=== PATIENT | male | born 1990 | race Caucasian/White ===

== ENCOUNTER 2016-06-09 09:04 | Emergency (ER) | payer BC ==
[2016-06-09] MEDS ORDERED: NS 0.9% 1000 ML* 2,000 ML IV ONE (09:43)
[2016-06-09 10:03] LABS: Hematocrit 46 % (42-52); Hemoglobin 16.1 g/dl (14.0-18.0); Mean Corpuscular HGB Conc 35 g/dl (31-36); Mean Corpuscular Hemoglobin 29 pg (27-31); Mean Corpuscular Volume 83 fL (80-94); Mean Platelet Volume 9 um3 (7.4-10.4); Red Blood Count 5.57 10^6/ul (4.0-5.4); Red Cell Distribution Width 13 % (10.5-15); White Blood Count 14.8 10^3/ul (3.5-10.8)
[2016-06-09 10:10] LABS: Urine Bacteria Absent (Absent); Urine Bilirubin Negative (Negative); Urine Glucose Negative (Negative); Urine Nitrite Negative (Negative)
[2016-06-09 10:17] LABS: Albumin 4.6 g/dL (3.2-5.2); BUN/Creatinine Ratio 13.5 (8-20); C Reactive Protein 14.54 mg/L (< 5.00); Calcium 9.5 mg/dL (8.6-10.3); EGFR African American 84.3 (>60); EGFR Non-African American 65.5 (>60); Potassium 4.1 mmol/L (3.5-5.0); Total Bilirubin 1.3 mg/dL (0.2-1.0); Total Protein 7.6 g/dL (6.4-8.9)
[2016-06-09] MEDS ORDERED: Ketorolac INJ* 30 MG/ML 1 ML VIAL IV PUSH ONE (11:29)
[2016-06-09 14:35] VITALS: BP 114/69
--- NOTE | 2016-06-10 07:12 | PN ---
Addendum entered and electronically signed by Jocelynn Post PA 06/11/16 07: 01: Progress Note - Progress Note Note: Stool culture results negative for shiga toxin. Did show lactoferrin. Will wait for further results. Pt diagnosed with food poisoning, gastroenteritis. No changes needed at this time. Original Note: Progress Note - Progress Note Note: Patient was discharged home, diagnosed with acute diarrhea and food poisoning. Stool culture preliminary results were positive for fecal lactoferrin. No changes or treat necessary at this time.
--- NOTE | 2016-06-17 15:23 | ED ---
Abdominal Pain/Male - HPI Summary HPI Summary: Patient is an otherwise healthy 25yo m who presents with N/V/D since last night. He states he ate some [employer] for dinner late at night. Several hours later he awoke to these symptoms. Vomiting x 3 and watery diarrhea x5 for the last 6 hours. He states he feels dehydrated but denies abdominal pain. Denies fever, neck pain or back pain. Denies urinary symptoms. Endorses tenesmus which dissipates after having a BM. Denies color changes in the stool. Denies travel or camping. - History of Current Complaint Chief Complaint: EDGeneral Stated Complaint: VOMITING Time Seen by Provider: 06/09/16 09:16 Hx Obtained From: Patient Onset/Duration: Sudden Onset Timing: Constant Severity Initially: Moderate Severity Currently: Moderate Pain Intensity: 0 Pain Scale Used: 0-10 Numeric Radiates: No Aggravating Factor(s): Nothing Alleviating Factor(s): Bowel Movement Associated Signs And Symptoms: Positive: Vomiting, Diarrhea - Risk Factors Testicular Torsion: Negative Cardiac Risk Factors: Negative - Allergies/Home Medications Allergies/Adverse Reactions: Allergies Allergy/AdvReac Type Severity Reaction Status Date / Time No Known Allergies Allergy Verified 06/09/16 10:16 PMH/Surg Hx/FS Hx/Imm Hx Previously Healthy: Yes - Immunization History Hx Pertussis Vaccination: Yes Immunizations Up to Date: Yes Infectious Disease History: No Infectious Disease History: Denies: Traveled Outside the [place] in Last 30 Days - Social History Occupation: Employed Full-time Lives: With Family Alcohol Use: Rare Hx Substance Use: No Substance Use Type: Reports: None Hx Tobacco Use: No Smoking Status (MU): Never Smoked Tobacco Do You Chew or Dip Tobacco: No Have You Chewed or Dipped Tobacco in the LAST YEAR: No Review of Systems Positive: Skin Diaphoresis Eyes: Negative ENT: Negative Cardiovascular: Negative Respiratory: Negative Positive: Vomiting, Diarrhea, Nausea Positive: no symptoms reported, see HPI Musculoskeletal: Negative Neurological: Negative Psychological: Normal All Other Systems Reviewed And Are Negative: Yes Physical Exam Triage Information Reviewed: Yes Vital Signs On Initial Exam: Initial Vitals Temp Pulse Resp BP Pulse Ox 97.7 F 112 20 117/52 100 06/09/16 09:07 06/09/16 09:07 06/09/16 09:07 06/09/16 09:07 06/09/16 09:07 Vital Signs Reviewed: Yes Appearance: Positive: Well-Appearing, No Pain Distress, Well-Nourished Skin: Positive: Warm, Skin Color Reflects Adequate Perfusion, Diaphoretic Head/Face: Positive: Normal Head/Face Inspection Eyes: Positive: EOMI, DOC, Conjunctiva Clear ENT: Positive: Pharynx normal, TMs normal Neck: Positive: Supple, Nontender, No Lymphadenopathy Respiratory/Lung Sounds: Positive: Clear to Auscultation, Breath Sounds Present Cardiovascular: Positive: Normal, RRR Abdomen Description: Positive: Soft Bowel Sounds: Positive: Present Neurological: Positive: Sensory/Motor Intact, Alert, Oriented to Person Place, Time, Speech Normal Psychiatric: Positive: Normal AVPU Assessment: Alert Diagnostics - Vital Signs Vital Signs Temp Pulse Resp BP Pulse Ox 06/09/16 14:33 99.5 F 96 20 114/69 06/09/16 13:02 99.2 F 108 16 117/65 97 06/09/16 09:07 97.7 F 112 20 117/52 100 - Laboratory Lab Results: Lab Results 06/09/16 06/09/16 06/09/16 Range/Units 09:30 09:50 09:50 WBC 14.8 H (3.5-10.8) 10^3/ul RBC 5.57 H (4.0-5.4) 10^6/ul Hgb 16.1 (14.0-18.0) g/dl Hct 46 (42-52) % MCV 83 (80-94) fL MCH 29 (27-31) pg MCHC 35 (31-36) g/dl RDW 13 (10.5-15) % Plt Count 220 (150-450) 10^3/ul MPV 9 (7.4-10.4) um3 Neut % (Auto) 93.8 H (38-83) % Lymph % (Auto) 1.5 L (25-47) % [place] % (Auto) 4.1 (1-9) % Eos % (Auto) 0.2 (0-6) % Baso % (Auto) 0.4 (0-2) % Absolute Neuts (auto) 13.9 H (1.5-7.7) 10^3/ul Absolute Lymphs (auto) 0.2 L (1.0-4.8) 10^3/ul Absolute Monos (auto) 0.6 (0-0.8) 10^3/ul Absolute Eos (auto) 0 (0-0.6) 10^3/ul Absolute Basos (auto) 0.1 (0-0.2) 10^3/ul Absolute Nucleated RBC 0 10^3/ul Nucleated RBC % 0 Sodium 135 (133-145) mmol/L Potassium 4.1 (3.5-5.0) mmol/L Chloride 100 L (101-111) mmol/L Carbon Dioxide 27 (22-32) mmol/L Anion Gap 8 (2-11) mmol/L BUN 18 (6-24) mg/dL Creatinine 1.33 H (0.67-1.17) mg/dL Est GFR ( Amer) 84.3 (>60) Est GFR (Non-Af Amer) 65.5 (>60) BUN/Creatinine Ratio 13.5 (8-20) Glucose 127 H (70-100) mg/dL Calcium 9.5 (8.6-10.3) mg/dL Total Bilirubin 1.30 H (0.2-1.0) mg/dL AST 17 (13-39) U/L ALT 13 (7-52) U/L Alkaline Phosphatase 34 (34-104) U/L C-Reactive Protein 14.54 H (< 5.00) mg/L Total Protein 7.6 (6.4-8.9) g/dL Albumin 4.6 (3.2-5.2) g/dL Globulin 3.0 (2-4) g/dL Albumin/Globulin Ratio 1.5 (1-3) Lipase 12 (11.0-82.0) U/L Urine Color Yellow Urine Appearance Clear Urine pH 7.0 (5-9) Ur Specific [place] 1.029 (1.010-1.030) Urine Protein 1+(30 mg/dl) H (Negative) Urine Ketones Trace H (Negative) Urine Blood Negative (Negative) Urine Nitrate Negative (Negative) Urine Bilirubin Negative (Negative) Urine Urobilinogen Negative (Negative) Ur Leukocyte Esterase Negative (Negative) Urine WBC (Auto) Trace(0-5/hpf) (Absent) Urine RBC (Auto) Trace(0-2/hpf) (Absent) Urine Bacteria Absent (Absent) Urine Glucose Negative (Negative) Result Diagrams: 06/09/16 09:50 06/09/16 09:50 Lab Statement: Any lab studies that have been ordered have been reviewed, and results considered in the medical decision making process. Abdominal Pain Fem Course/Dx - Course Course Of Treatment: Patient given 2L LR. Patient declined zofran. WBC elevated at 14. Patient feeling well. Continues to have diarrhea, but denies nausea. Patient feels possibly related to valentina[employer]. no tenderness at mcbur[place] point, no fever, murphys negative. stool positive for lactoferrin, will await other results. patient encouraged not to use anti-diarrheals at this time. will not treat with abx unless cx back positive. patient feeling well and requests discharge home. patient encouraged to follow up with pcp or return for any worsening symptoms. BRAT diet x2 days and drink plenty of fluids. - Diagnoses Differential Diagnosis/HQI/PQRI: Other - diarrhea, food poisoning, gastroenteritis, nausea, vomiting, bacterial diarrhea Provider Diagnoses: Gastroenteritis Discharge - Discharge Plan Condition: Stable Disposition: HOME Prescriptions: Ondansetron ODT TAB* [Zofran 4 MG Odt TAB*] 4 mg PO Q6H PRN #12 tab.odt MDD 4 PRN Reason: Nausea Patient Education Materials: Acute Diarrhea (ED), Food Poisoning (ED) Forms: *Work Release Referrals: No Primary Care Phys,NOPCP [Primary Care Provider] - Additional Instructions: Drink plenty of fluids. If you feel you cannot get enough fluids, supplement with Gatorade. Rest today. If symptoms become worse, come back to ED immediately. Will call tomorrow if you need to be placed on antibiotics.
== END 2016-06-09 14:33 | disposition home or self-care (01) ==
LOC: ED 09:04
DX: K52.9 Noninfective gastroenteritis and colitis, unspecified (principal); R11.2 Nausea with vomiting, unspecified; R19.7 Diarrhea, unspecified
CPT/HCPCS: 36415; 80053; 81003; 81015; 83630; 83690; 85025; 86140; 87045; 87046; 87077; 87899; 96374; 96375; 99284; J1885